=== PATIENT | female | born 1975 | race Hispanic/Latino ===

== ENCOUNTER 2023-06-27 07:09 | Day surgery (SDC) | payer OTHER ==
[2023-06-26 12:43] LABS: BASOPHILS # (AUTO) 0.04 K/uL (0.00-0.20); BASOPHILS % (AUTO) 0.9 % (0.0-5.0); EOSINOPHILS # (AUTO) 0.08 K/uL (0.00-0.70); EOSINOPHILS % (AUTO) 1.8 % (0.0-8.0); LYMPHOCYTES # (AUTO) 1.7 K/uL (1.0-4.8); LYMPHOCYTES % (AUTO) 38.4 % (21.0-51.0); MEAN CORPUSCULAR HEMOGLOBIN 30.2 pg (27.0-33.0); MEAN CORPUSCULAR VOLUME 91.5 fL (79-99); MONOCYTES # (AUTO) 0.3 K/uL (0.1-1.0); MONOCYTES % (AUTO) 7.3 % (3.0-13.0); NEUTROPHILS # (AUTO) 2.3 K/uL (1.8-7.7); NEUTROPHILS % (AUTO) 51.6 % (40.0-77.0); PLATELET COUNT (AUTO) 252 K/uL (130-400); RED BLOOD CELL COUNT(AUTO) 4.37 MIL/uL (4.00-5.50); RED CELL DISTRIBUTION WIDTH 13.8 % (11.0-15.5); WHITE BLOOD COUNT (AUTO) 4.5 K/uL (4.8-10.8)
[2023-06-26 12:49] VITALS: BP 122/73; PULSE 77; RESP 16
[2023-06-26 12:57] LABS: INR < 0.93 (0.85-1.15); PROTHROMBIN TIME 10.8 SEC (9.6-11.6)
[2023-06-26 12:58] LABS: PARTIAL THROMBOPLASTIN TIME 29.3 SEC (26.3-35.5)
[2023-06-27] VITALS (19 sets, daily range): BP systolic 103–119; BP diastolic 54–73; PULSE 58–77; RESP 10–17
[~2023-06-27] VITALS: Ht 167.6 cm; Wt 92.2 kg
[~2023-06-27 07:09] MED LIST: BIKTARVY PO; DULO60CA45 PO; GABA300C PO; OMEG1CAP45 PO; PREN-154 PO; VITAMIN D PO; ZOLP10TA2 PO
[2023-06-27] MEDS ORDERED: 0.9%NACL 1000ML 1,000 ML IV ONE (07:45)
[2023-06-27] MEDS ORDERED: LIDOCAINE HCL/EPINEPHRINE 50 ML VIAL IJ ONE (08:04)
[2023-06-27] MEDS ORDERED: MINERAL OIL 30 ML UDCUP ONE (08:06)
[2023-06-27] MEDS ORDERED: LIDOCAINE 1%-EPI 1:100,000 20 ML VIAL ONE (08:06)
[2023-06-27] MEDS ORDERED: BACITRACIN 28.4 GM OINT TP ONE (08:07)
[2023-06-27] MEDS ORDERED: MIDAZOLAM HCL 1 MG/ML 2ML VIAL ONE (08:07)
[2023-06-27] MEDS ORDERED: DEXAMETHASONE SOD PHOSPHATE 10MG/ML 1ML VIAL ONE (08:11)
[2023-06-27] MEDS ORDERED: LIDOCAINE PF 100MG/5ML (2%) SYRINGE 5ML ONE (08:11)
[2023-06-27] MEDS ORDERED: PROPOFOL 10 MG/ML 20ML VIAL IV ONE (08:12)
[2023-06-27] MEDS ORDERED: SUCCINYLCHOLINE CHLORIDE 20 MG/ML 10 ML VIAL ONE (08:12)
[2023-06-27] MEDS ORDERED: GLYCOPYRROLATE 0.2 MG/ML 5 ML VIAL ONE (08:12)
[2023-06-27] MEDS ORDERED: NEOSTIGMINE METHYLSULFATE 1MG/ML IV ONE (08:12)
[2023-06-27] MEDS ORDERED: FENTANYL CITRATE PF 50 MCG/1 ML 2ML VIAL ONE (08:13)
[2023-06-27] MEDS ORDERED: ROCURONIUM BROMIDE 10MG/1ML 5ML VL ONE (08:24)
[2023-06-27] MEDS ORDERED: ONDANSETRON 4MG INJ ONE (09:24)
[2023-06-27] MEDS ORDERED: MEPERIDINE-PF 25 MG/ML SYG ONE ×2 (09:29→09:46)
[2023-06-27] MEDS ORDERED: METOCLOPRAMIDE 10 MG/2 ML VIAL ONE (09:30)
[2023-06-27] MEDS ORDERED: KETOROLAC 30MG VIAL (30MG/ML) ONE (09:46)
== END 2023-06-27 11:30 | disposition home or self-care (01) ==
LOC: DAH 07:09
PROVIDERS: ATTEND Otolaryngology Plastic Surgery within the Head & Neck
DX: D17.0 Benign lipomatous neoplasm of skin and subcutaneous tissue of head, face and neck (principal); B20 Human immunodeficiency virus [HIV] disease; Z79.01 Long term (current) use of anticoagulants; Z90.49 Acquired absence of other specified parts of digestive tract; Z98.891 History of uterine scar from previous surgery; Z87.891 Personal history of nicotine dependence; Z79.899 Other long term (current) drug therapy
CPT/HCPCS: 84703; 85025; 85610; 85730; 36415; 21556; 82948; 88304; A4663; J7030 ×2; A4606; J3010; J3490 ×3; J1100; J0330; J2001; J2250; J2704; J2405; J1885; J2710; J2175 ×2; J2765; A4930; A4215; A4223; A4222; A4221